=== PATIENT | female | born 1945 | race Native Hawaiian/Other Pacific Islander ===

== ENCOUNTER 2024-11-30 16:06 | Emergency (ER) | payer MEDICARE, OTHER, SELFPAY ==
[2024-11-30] VITALS (8 sets, daily range): BP systolic 103–188; BP diastolic 69–97; BMI 19.1
[2024-11-30 16:40] LABS: % Basophils 0.3 % (0-2); % Eosinophils 1.2 % (0-6); % Immature Granulocytes 0.3 % (0-0.5); % Lymphocytes 28.1 % (20.5-51.1); % Monocytes 10.1 % (1.7-9.3); Absolute Eosinophils 0.1 10^3/uL (0-0.7); Absolute Lymphocytes 1.7 10^3/uL (1.2-3.4); Absolute Monocytes 0.6 10^3/uL (0.1-0.6); Absolute Neutrophils 3.6 10^3/uL (1.4-6.5); Hematocrit 36.8 % (37.0-47.0); Hemoglobin 12.3 g/dL (12.0-16.0); Mean Corp Hgb Conc. 33.4 g/dL (33.0-37.0); Mean Corpuscular Hgb 29.6 pg (27.0-31.0); Mean Corpuscular Volume 88.5 fL (81.0-99.0); Mean Platelet Volume 9.2 fL (7.4-10.4); Nucleated Red Blood Cells % 0 %; Platelet Count 302 10^3/uL (130-400); Red Blood Cell Count 4.16 10^6/uL (4.20-5.40); Red Cell Dist. Width 12.1 % (11.5-14.5)
[2024-11-30 17:00] LABS: ALT (SGPT) 20 U/L (0-35); AST (SGOT) 27 U/L (14-36); Albumin 4.1 g/dl (3.5-5.0); Alkaline Phosphatase 71 U/L (38-126); Blood Urea Nitrogen 21 mg/dl (7-17); Calcium 10.2 mg/dl (8.4-10.2); Carbon Dioxide 28 mmol/L (22-30); Chloride 102 mmol/L (98-107); Glucose 95 mg/dl (70-99); Potassium 4.5 mmol/L (3.5-5.1); Sodium 140 mmol/L (135-145); Total Bilirubin 0.4 mg/dl (0.2-1.3); Total Protein 6.6 g/dl (6.3-8.2); eGFR > 60.00
--- NOTE | 2024-11-30 21:30 | ED.GENMED ---
History of Present Illness
General
Chief Complaint: Back Pain
Source: patient and family
Time Seen by Provider: 11/30/24 20:27
History of Present Illness
History of Present Illness:
79-year-old female with past medical history of hypertension presenting to the emergency department for a multitude of concerns including bilateral leg pain, intermittent numbness, difficulty walking, back pain, elevated blood pressure, headache,
intermittent rhinorrhea and generally feeling unwell. Patient notes that a lot of her leg and back symptoms have been ongoing for many months if not years, has known lumbar compression fracture which was recently imaged by x-ray with her primary
care provider and reportedly did not show any significant changes but there was concern for some osteoporosis. Patient states that due to her worsening leg pain and intermittent weakness her son brought her to the emergency department. Her son
also reports that patient was told that she would likely need further imaging including CT scan or MRI for her back issues. Patient also notes that her blood pressure has been elevated and her primary care recently changed patient's blood pressure
medication from 5 mg of lisinopril/HCTZ to 20 mg lisinopril/HCTZ.
Past History
Past History
ED Past Medical History: HTN
ED Past Surgical History: None
Social History
Tobacco: Non-smoker
Alcohol: None
Drug: None
Personal:
Living: alone
Review of Systems
Review of Systems
All Other Systems: ROS reviewed and negative except as documented in HPI and ROS
Phy Exam
Physical Exam
Physical Exam:
GENERAL: Alert , in no apparent distress
HEAD: NCAT
EYE: clear conjunctiva
NECK: Supple
ENT: o/p clr, mmm. no rhinorrhea
CARDIAC: Regular rate and rhythm .
LUNGS: Clear breath sounds bilaterally, no acute respiratory distress, no wheezes/rales/rhonchi
ABDOMEN: Soft, without focal tenderness, no r/g, no cvat
NEUROLOGICAL: Alert and oriented, no focal neuro deficits
SKIN: Warm and dry, skin intact.
MUSCULOSKELETAL: trace ankle edema bilateral, LLE slightly cooler to touch compared to left, both extremities slightly blotchy along the dorsum of feet. Dopplerable pedal and tibial pulses b/l. sensation grossly intact to light touch. FROM all
extremities
PSYCH: Normal and appropriate interaction.
Scores
Heart Failure Risk
Heart Failure Risk Score: Not Applicable
Heart Score for Chest Pain Patients
STEMI patient?: Not applicable
Withdrawal Assessment of Alcohol
Withdrawal Assessment Completed?: Not applicable
Course
Orders/Labs/Results
Orders:
Orders
11/30/24 16:21
Complete Blood Count/With Diff Urgent
Comprehensive Metabolic Panel Urgent
11/30/24 20:48
Electrocardiogram (*1) Urgent
Reason for Study: Hypertension, Benign
CT Head W/o Iv Contrast Urgent
Comment:
Reason For Exam: HTN, headache
EKG- Treatment ONCE
Abnormal Lab Results
11/30/24
16:21
RBC 4.16 L 10^6/uL
(4.20-5.40)
Hct 36.8 L %
(37.0-47.0)
Monocytes % 10.1 H %
(1.7-9.3)
BUN 21 H mg/dl
(7-17)
11/30/24 16:21
11/30/24 16:21
Vital Signs
Initial and Last Documented VS:
Initial Vital Signs
Temp Pulse Resp BP Pulse Ox
98.3 F 86 18 188/93 97
11/30/24 16:14 11/30/24 16:14 11/30/24 16:14 11/30/24 16:14 11/30/24 16:14
Last Documented Vital Signs
Temp Pulse Resp BP Pulse Ox
98.3 F 64 11 147/69 97
11/30/24 16:14 11/30/24 22:30 11/30/24 22:30 11/30/24 22:30 11/30/24 22:30
Rampman consulted with Physician
Rampman consulted with physician?: Yes
Name of Physician Consulted: Paulino
MDM/Problems Addressed
Differential Diagnosis Includes:
lumbar spine fracture, disc herniation, nerve impingement, HTN, less concern for ICH or end organ dysfunction
MDM/Problems Addressed:
79-year-old female presenting to the ER with a multitude of concerns, patient stating her biggest concern is her continued leg symptoms. She did have 1 blood pressure taken at time of my exam which was 200/100 however her blood pressure responded
well without any intervention down to 150/90. Given her elevated blood pressure and report of headache will still obtain CT scan and an EKG. I had a long extensive conversation with patient that I suspect most of her symptoms are from longstanding
issues and not any emergent pathologies. She clearly has some form of peripheral vascular/peripheral arterial disease but this does not appear to be acute. Patient lives in [facility] and is not from this area but her son does live
locally. I will provide them with information for some specialist in this area pending the rest of her workup with anticipation that the remaining portion of her workup will likely need to be as an outpatient. Patient and son expressed
understanding.
*Radiology
Radiology exam reviewed: radiology read reviewed
*Pulse Oximetry
Patient hypoxic: no
*[employer] Interpretation
Rate: normal
Rhythm: sinus
*Critical Care Note
Total Time (30-74mins, 75-104mins- exclusive of procedures): Not Applicable
Patient Management
Escalation/DeEscalation of care consider admission/obs:
CT scan without any acute abnormality. Patient remains hemodynamically stable. I do suspect most of her presentation today is likely acute on chronic symptoms. I did discuss with patient and son that I would recommend outpatient vascular
follow-up upon patient returning home. Patient and son expressed understanding. Patient is otherwise stable for discharge home.
ED Attending Note
-
Portions of this chart may have been created with voice recognition software.� Occasional wrong word or��sound alike� substitutions may have occurred due to the inherent limitations of voice recognition software.
Discharge Plan
Departure
Patient Disposition: Home (Routine Discharge)
Date of Disposition: 11/30/24
Time of Disposition: 22:34
Patient with high blood pressure during this ER visit?: Yes
Discharge Problem:
Hypertension, Back pain, Leg pain
Instructions: High blood pressure - ED discharge instructions
Referrals:
JOJO, RICHA [Other]
Interventions
Interventions:
*Risk Screen - Suicide Last Done: 11/30/24 22:45
*General Assessment Last Done: 11/30/24 22:45
*Neglect/Abuse Screening Last Done: 11/30/24 22:45
*ED- Fall Risk Assessment Last Done: 11/30/24 22:45
*ED COVID-19 Vaccine History Last Done: 11/30/24 22:45
*Nursing Disposition Last Done: 11/30/24 22:45
ED-Musculoskeletal Assessment Last Done: 11/30/24 20:05
Discharge Date and Time
Discharge Date/Time: 11/30/24 22:49
Print Language: GUINEAN
== END 2024-11-30 22:49 | disposition home or self-care (01) ==
LOC: EMR 16:06
PROVIDERS: Emergency Medicine; EMERGENCY PHYSICIAN Emergency Medicine
DX: M54.9 Dorsalgia, unspecified (principal); I10 Essential (primary) hypertension
CPT/HCPCS: 99284; 70450; 80053; 85025; 93005